=== PATIENT | male | born 1990 | race Caucasian/White ===

== ENCOUNTER 2017-02-28 06:16 | Emergency (ER) | payer OTHER ==
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
[2017-02-28 08:08] VITALS: TEMP 98
[2017-02-28] MEDS ORDERED: Fluorescein 1 mg Ophthalmic Strip OS ONE (09:23)
[2017-02-28] MEDS ORDERED: Fluorescein 1 mg Ophthalmic Strip ONE (09:47)
--- NOTE | 2017-02-28 10:03 | CT ---
CT orbits History: Distal left orbital pain Comparison: None available. Technique: Multiple contiguous axial images were performed through the orbits without the use of intravenous contrast. Subsequently, sagittal and coronal reformatted images were obtained. This CT exam was performed using one or more of the following dose reduction techniques: Automated exposure control, adjustment of the mA and/or kV according to patient size, and/or use of iterative reconstruction technique. Findings: Soft tissue swelling seen within the medial left periorbital region extending to the left nasal region and left pre maxillary region. Left orbital globe appears preserved. Adjacent left nasal bone appears preserved. Visualized right orbital globe and right-sided nasal bone appear preserved. Moderate mucosal thickening of the left maxillary sinus as well as the mid ethmoid air cells. Remainder of the paranasal sinuses appear preserved. Mastoid air cells are preserved. No evidence acute displaced fracture or dislocation. Few dental caries are noted. Diffuse shotty cervical chain lymph nodes are noted. Fatty atrophy of the parotid glands bilaterally. Productive bony change at the posterior superior aspect of the sella turcica at the level of the suprasellar cistern, nonspecific. Mild degenerative changes in the visualized spine at the level of the facet joints. Impression: Soft tissue swelling seen within the medial left periorbital region extending to the left nasal region and left pre maxillary region. Left orbital globe appears preserved. Adjacent left nasal bone appears preserved. Additional findings as above.
[2017-02-28 10:54] VITALS: BP 149/107; PULSE 89; RESP 20
[2017-02-28 11:12] VITALS: O2SAT 100
== END 2017-02-28 11:29 | disposition left against medical advice (07) ==
LOC: C.ER 06:16
DX: R22.0 Localized swelling, mass and lump, head (principal); Y08.89XA Assault by other specified means, initial encounter

== ENCOUNTER 2018-01-14 05:34 | Emergency (ER) | payer SELFPAY ==
[2018-01-14 05:51] VITALS: BP 132/85; PULSE 114; RESP 20; TEMP 97.9; O2SAT 95
--- NOTE | 2018-01-14 06:22 | C.PDOC ---
History Of Present Illness 27 year old male presents to the ED c/o left ear pain for the past couple of days. Patient feels he has a noise in his left ear. Patient denies fever, chills , prior URI symptoms. Time Seen by Provider: 01/14/18 05:51 Chief Complaint (Nursing): ENT Problem History Per: Patient History/Exam Limitations: None Onset/Duration Of Symptoms: Days Quality (Ear): Pain W/Touch Severity: None Anticoagulant/Antiplatlet Use?: No Recent Aspirin Use: No Past Medical History Reviewed: Historical Data, Nursing Documentation, Vital Signs Vital Signs: Last Vital Signs Temp 97.9 F 01/14/18 05:54 Pulse 114 H 01/14/18 05:54 Resp 20 01/14/18 05:54 BP 132/85 01/14/18 05:54 Pulse Ox 95 01/14/18 05:54 - Medical History PMH: Migraine Surgical History: Appendectomy (9 yrs old) Family History: States: Unknown Family Hx - Social History Hx Tobacco Use: Yes (heavy smoker) Hx Alcohol Use: No Hx Substance Use: No - Immunization History Hx Tetanus Toxoid Vaccination: No Hx Influenza Vaccination: No Hx Pneumococcal Vaccination: No (''unknown'') Review Of Systems Constitutional: Negative for: Fever, Chills ENT: Positive for: Ear Pain Cardiovascular: Negative for: Chest Pain, Palpitations Respiratory: Negative for: Cough, Shortness of Breath Gastrointestinal: Negative for: Nausea, Vomiting Skin: Negative for: Rash Neurological: Negative for: Headache Physical Exam - Physical Exam Appears: Non-toxic, No Acute Distress Skin: Normal Color, Warm, Dry Head: Atraumatic, Normacephalic Eye(s): bilateral: Normal Inspection Ear(s): Left: Other (bulging yellowish discoloration of TM), Right: Normal Oral Mucosa: Moist Throat: Normal, No Erythema, No Exudate Neck: Normal ROM, Supple Extremity: Normal ROM, No Tenderness, No Swelling Neurological/Psych: Oriented x3, Normal Speech Gait: Steady ED Course And Treatment O2 Sat by Pulse Oximetry: 95 (ON RA) Pulse Ox Interpretation: Normal Progress Note: Plan: - amoxcillin 500 mg PO. - Motrin 600 mg PO Disposition - Disposition - PA / ACUTE CARE CLINICAL NURSE SPECIALIST / Resident Statement /DO has reviewed & agrees with the documentation as recorded. - Scribe Statement The provider has reviewed the documentation as recorded by the Scribe Kade Martinez All medical record entries made by the Catherineibjose luis were at my direction and personally dictated by me. I have reviewed the chart and agree that the record accurately reflects my personal performance of the history, physical exam, medical decision making, and the department course for this patient. I have also personally directed, reviewed, and agree with the discharge instructions and disposition.
--- NOTE | 2018-01-14 06:25 | C.PDOC ---
History Of Present Illness 27 year old male presents to the ED c/o left ear pain for the past couple of days. Patient feels he has a noise in his left ear. Patient denies fever, chills , prior URI symptoms. Time Seen by Provider: 01/14/18 05:51 Chief Complaint (Nursing): ENT Problem History Per: Patient History/Exam Limitations: None Onset/Duration Of Symptoms: Days Current Symptoms Are (Timing): Still Present Quality (Ear): Pain W/Touch Anticoagulant/Antiplatlet Use?: No Recent Aspirin Use: No Past Medical History Reviewed: Historical Data, Nursing Documentation, Vital Signs Vital Signs: Last Vital Signs Temp 97.9 F 01/14/18 05:54 Pulse 114 H 01/14/18 05:54 Resp 20 01/14/18 05:54 BP 132/85 01/14/18 05:54 Pulse Ox 95 01/14/18 06:27 - Medical History PMH: Migraine Surgical History: Appendectomy (9 yrs old) Family History: States: Unknown Family Hx - Social History Hx Tobacco Use: Yes (heavy smoker) Hx Alcohol Use: No Hx Substance Use: No - Immunization History Hx Tetanus Toxoid Vaccination: No Hx Influenza Vaccination: No Hx Pneumococcal Vaccination: No (''unknown'') Review Of Systems Constitutional: Negative for: Fever, Chills ENT: Positive for: Ear Pain. Negative for: Nose Discharge, Nose Congestion Cardiovascular: Negative for: Chest Pain, Palpitations Respiratory: Negative for: Shortness of Breath Gastrointestinal: Negative for: Nausea, Vomiting Skin: Negative for: Rash Physical Exam - Physical Exam Appears: Non-toxic, No Acute Distress Skin: Normal Color, Warm, Dry Head: Atraumatic, Normacephalic Eye(s): bilateral: Normal Inspection Ear(s): Left: Other (bulging yellow discoloration TM), Right: Normal Oral Mucosa: Moist Throat: Normal, No Erythema, No Exudate Neck: Normal ROM, Supple Extremity: Normal ROM, No Tenderness, No Swelling Neurological/Psych: Oriented x3, Normal Speech Gait: Steady ED Course And Treatment O2 Sat by Pulse Oximetry: 95 (ON RA) Pulse Ox Interpretation: Normal Progress Note: Plan: - amoxicillin 500 mg PO. - Motrin 600 mg po Disposition - Disposition Referrals: [facility] [Outside] Mane Verduzco MD [Staff Provider] - Disposition: HOME/ ROUTINE Disposition Time: 06:22 Condition: STABLE Additional Instructions: Follow up with PMD and ENT within 1-2 days. Return to ED if feel worse. Prescriptions: Amoxicillin 500 mg PO Q8 #30 tab Ibuprofen [Motrin Tab] 600 mg PO Q8 #30 tab Forms: [facility] (Pashto) - Clinical Impression Clinical Impression: Otitis media - PA / TANK PROCESSOR / Resident Statement MD/DO has reviewed & agrees with the documentation as recorded. - Scribe Statement The provider has reviewed the documentation as recorded by the Scribe Kade Martinez All medical record entries made by the Scribe were at my direction and personally dictated by me. I have reviewed the chart and agree that the record accurately reflects my personal performance of the history, physical exam, medical decision making, and the department course for this patient. I have also personally directed, reviewed, and agree with the discharge instructions and disposition.
== END 2018-01-14 06:32 | disposition home or self-care (01) ==
LOC: C.ER 05:34
DX: H66.92 Otitis media, unspecified, left ear (principal); F17.210 Nicotine dependence, cigarettes, uncomplicated